=== PATIENT | female | born 1960 | race Hispanic/Latino ===

== ENCOUNTER → 2020-03-14 | Day surgery (SDC) | payer BC, OTHER ==
[~2020-03-14] MED LIST: ACETAMINOPHEN325 M1 PO; FENTANYL CITRATE/PF 100MCG/2 ML INJ ONE; GLUCAGON FOR INJ 1 MG VIAL ONE; HYOSCYAMINE 0.125 MG TAB ONE; LIPITOR10 MG PO; LISINOPRIL-HCT1 EACH PO; MIDAZOLAM HCL 2 MG/2 ML VIAL ONE; PROPOFOL IV EMULSION 10 MG/ML 20 ML VIAL ONE; TUMS300 MG PO
--- NOTE | 2020-03-14 07:20 | NUR ---
SPIRITUAL CARE - Pre-Surgery Assessment: Pt in bed. Pt's at bedside. Pt reported supportive attention from family and friends. Intervention: Repairer [employer]aporator provided pastoral presence, hospitality, and sympathetic listening. Acquainted pt with availability of obstetrics/gynecology nurse while hospitalized. Outcome: Pt expressed appreciation for visit. No need for follow up indicated at this time. VILMA Garcia Spiritual Care Department O: [phone]
[2020-03-14 09:00] VITALS: BP 141/68
--- NOTE | 2020-03-14 09:15 | Operative Report ---
DATE OF PROCEDURE: 03/14/2020 SURGEON: Compa Echols MD PROCEDURE: EGD. INDICATIONS FOR EGD: Acid reflux. INDICATIONS FOR COLONOSCOPY: Surveillance colonoscopy, personal history of colon polyps. MEDICATIONS: The patient was done under MAC, please see anesthesiologist's note. PROCEDURE IN DETAIL: With the patient in the left lateral decubitus position, the flexible fiberoptic Olympus gastroscope was introduced into the esophagus under direct visualization without any difficulty. There was some patchy erythema noted in distal esophagus. The scope was then advanced with ease into the stomach. Mucosa overlying the antrum and the body revealed some patchy erythema and [id number] edema, and biopsies were obtained and sent to stain for H. pylori. Hyperplastic-appearing polyps were noted in the body of the stomach and some were partially excised with the cold biopsy forceps. Pylorus was of normal contour and shape, was intubated with ease and the scope was advanced all the way to the second portion of the duodenum. The scope was then withdrawn slowly. Mucosa overlying the proximal second portion and the duodenal bulb appeared to be within normal limits. The scope was then withdrawn back into the stomach and retroflexed, and mucosa overlying the fundus and the cardia appeared to be within normal limits. The scope was then straightened out, it was subsequently withdrawn, and the patient tolerated the procedure well. IMPRESSION: 1. Distal esophagitis, mild. 2. Gastritis, biopsied, biopsies sent to stain for Helicobacter pylori. 3. Gastric polyps, body, hyperplastic-appearing, some partially excised with the cold biopsy forceps. PLAN: Follow up histology. Initiate Protonix 40 mg one p.o. q.a.m. before meals. The patient was then turned around and after adequate lubrication of the anal canal, a flexible fiberoptic Olympus colonoscope was inserted into the rectum with ease and advanced all the way to the cecum. Mucosa overlying the cecum appeared to be within normal limits. The scope was then withdrawn slowly and mucosa overlying the ascending, transverse, descending, and sigmoid grossly were within normal limits other than for diverticular disease, which was noted throughout the colon. The scope was then retroflexed into the distal rectum and moderate-sized internal hemorrhoids were noted, none of which was actively bleeding. The scope was then straightened out and it was subsequently withdrawn. Also, some perianal warts were noted on the way out. IMPRESSION: 1. Pandiverticulosis. 2. Internal hemorrhoids. 3. Perianal warts. PLAN: Initiate high-fiber low-fat diet. Initiate high-fiber supplement. The patient might benefit from a followup colonoscopy in 3 to 5 years. MD THALIA Gilliland/JAIR /[id number] cc: [facility]
== END | disposition home or self-care (01) ==
LOC: OR 05:47
PROVIDERS: ATTEND Internal Medicine Gastroenterology
DX: K21.9 Gastro-esophageal reflux disease without esophagitis (principal); Z86.010 Personal history of colon polyps; K31.7 Polyp of stomach and duodenum; K29.50 Unspecified chronic gastritis without bleeding; K20.90 Esophagitis, unspecified without bleeding; K57.30 Diverticulosis of large intestine without perforation or abscess without bleeding; K64.8 Other hemorrhoids; A63.0 Anogenital (venereal) warts; I10 Essential (primary) hypertension; K60.2 Anal fissure, unspecified; K62.89 Other specified diseases of anus and rectum; Z01.810 Encounter for preprocedural cardiovascular examination; Z01.812 Encounter for preprocedural laboratory examination; Z11.59 Encounter for screening for other viral diseases; Z68.33 Body mass index [BMI] 33.0-33.9, adult
CPT/HCPCS: 43239; 45378; 93005 ×2; J1610; J2250; J2704; J3010; U0002

== ENCOUNTER 2021-04-14 10:33 | Emergency (ER) | payer BC ==
[~2021-04-14] VITALS: Ht 157.5 cm; Wt 77.1 kg
[~2021-04-14 10:33] MED LIST changes: -FENTANYL CITRATE/PF 100MCG/2 ML INJ ONE; -GLUCAGON FOR INJ 1 MG VIAL ONE; -HYOSCYAMINE 0.125 MG TAB ONE; -MIDAZOLAM HCL 2 MG/2 ML VIAL ONE; -PROPOFOL IV EMULSION 10 MG/ML 20 ML VIAL ONE
[2021-04-14] MEDS ORDERED: PROTONIX20 MG PO (11:10)
[2021-04-14] MEDS ORDERED: IBUPROFEN600 MG PO (11:10)
[2021-04-14] MEDS ORDERED: NEURONTIN100 MG PO (11:10)
[2021-04-14] MEDS ORDERED: CETIRIZINE HCL10 MG (11:10)
[2021-04-14] MEDS ORDERED: DOCUSATE SODIU100 MG PO (11:10)
[2021-04-14] MEDS ORDERED: ERGOCAL62.5 MCG PO (11:10)
[2021-04-14] MEDS ORDERED: ULTRAM50 MG PO (11:10)
[2021-04-14] MEDS ORDERED: ASPIRIN325 MG PO (11:10)
[2021-04-14] MEDS ORDERED: CEFTRIAXONE 1 GM in SODIUM CHLORIDE 0.9% 50ML 50 ML IV ONE (12:00)
[2021-04-14] MEDS ORDERED: KETOROLAC TROMETHAMINE 30 MG/ML VIAL IV NR (12:00)
[2021-04-14] MEDS ORDERED: SODIUM CHLORIDE 0.9% 1000ML 1,000 ML IV SCH (12:00)
[2021-04-14] MEDS ORDERED: SODIUM CHLORIDE 0.9% 50ML 50 ML ONE (12:05)
[2021-04-14] MEDS ORDERED: CEFTRIAXONE 1 GM VIAL ONE (12:05)
[2021-04-14] MEDS ORDERED: CEFUROXIME500 MG PO (13:45)
== END 2021-04-14 13:49 | disposition home or self-care (01) ==
LOC: FSED 10:48
DX: N39.0 Urinary tract infection, site not specified (principal); N20.0 Calculus of kidney; E78.5 Hyperlipidemia, unspecified; I10 Essential (primary) hypertension; B96.20 Unspecified Escherichia coli [E. coli] as the cause of diseases classified elsewhere; I25.10 Atherosclerotic heart disease of native coronary artery without angina pectoris; K21.9 Gastro-esophageal reflux disease without esophagitis
CPT/HCPCS: 74176; 80053; 81003; 85025; 87086; 87186; 96374; 99284; J0696; J1885; J7030

== ENCOUNTER 2024-03-19 10:35 | Emergency (ER) | payer MEDICARE ==
[~2024-03-19] VITALS: Ht 157.5 cm; Wt 76.2 kg
[~2024-03-19 10:35] MED LIST changes: +ASPIRIN325 MG PO; +CEFUROXIME500 MG PO; +CETIRIZINE HCL10 MG; +DOCUSATE SODIU100 MG PO; +ERGOCAL62.5 MCG PO; +FAMOTIDINE20 MG PO; +IBUPROFEN600 MG PO; +MECLIZINE HCL12.5 MG PO; +NEURONTIN100 MG PO; +ONDANSETRON ODT4 MG PO; +PROTONIX20 MG PO; +ULTRAM50 MG PO
[2024-03-19 10:42] VITALS: PULSE 73; RESP 18; TEMP 98.6; O2SAT 97
[2024-03-19] MEDS ORDERED: CEPHALEXIN500 MG PO (11:06)
== END 2024-03-19 11:15 | disposition home or self-care (01) ==
LOC: FSED 10:42
DX: L03.317 Cellulitis of buttock (principal); I10 Essential (primary) hypertension; I25.10 Atherosclerotic heart disease of native coronary artery without angina pectoris; E78.5 Hyperlipidemia, unspecified; K21.9 Gastro-esophageal reflux disease without esophagitis; M19.09 Primary osteoarthritis, other specified site
CPT/HCPCS: 99283